=== PATIENT | female | born 1955 | race Caucasian/White ===

== ENCOUNTER → 2016-05-02 | Outpatient (REF) | payer OTHER ==
[2016-05-02 15:43] LABS: BILIRUBIN,URINE Negative (Negative); COLOR,URINE Yellow; GLUCOSE, URINE (UA) Negative (Negative); LEUKOCYTE ESTERASE ,URINE 1+ (Negative); PH,URINE 6.5 (5.0 - 8.0)
[2016-05-02 15:55] LABS: CLARITY,URINE Slightly Cloudy
[2016-05-02 15:57] LABS: BASOPHILS % (AUTO) 0 % (0-2); EOSINOPHILS # (AUTO) 0.1 10^3uL; EOSINOPHILS % (AUTO) 1 % (0-4); LYMPHOCYTES # (AUTO) 3.2 X10^3; MEAN CORPUSCULAR HGB CONC 32.8 g/dL (31.0-37.0); MEAN CORPUSCULAR VOLUME 92 FL (80-100); MEAN PLATELET VOLUME 12.2 FL (6.0-9.5); MONOCYTES # (AUTO) 0.8 X10^3; MONOCYTES % (AUTO) 9 % (3-11); NEUTROPHILS # (AUTO) 4.6 X10^3; NEUTROPHILS % (AUTO) 53 % (51-67); PLATELET COUNT 197 10^3uL (150-450); WHITE BLOOD COUNT 8.69 10^3uL (4.0-11.0)
[2016-05-02 16:06] LABS: RBC,URINE None Seen /HPF; URINE CENTRIFUGED VOLUME 10 mL
[2016-05-02 16:15] LABS: ALBUMIN 4.4 g/dL (3.4-5.0); ANION GAP 15.7 MEQ/L (3-15); TOTAL PROTEIN 7.6 g/dL (6.4-8.5)
== END ==
LOC: LAB 15:13
PROVIDERS: ATTEND Family Medicine
DX: I10 Essential (primary) hypertension (principal); E78.4 Other hyperlipidemia; M79.7 Fibromyalgia; Z85.3 Personal history of malignant neoplasm of breast; K21.9 Gastro-esophageal reflux disease without esophagitis
CPT/HCPCS: 80053; 80061; 81003; 81015; 84443; 85025; 87088

== ENCOUNTER → 2016-05-11 | Outpatient (CLI) | payer OTHER ==
--- NOTE | 2016-05-11 19:37 | Diagnostic Imaging Report ---
INDICATION: Prior left mastectomy. EXAMINATION: Diagnostic mammogram, right breast, 05/11/2016. COMPARISON: 03/11/2015, 06/25/14. The current study was also evaluated with a Computer Aided Detection (CAD) system. FINDINGS: There are a few scattered calcifications stable in appearance with no suspicious microcalcifications or dominant masses appreciated. IMPRESSION: 1. Stable appearance of the right breast. Yearly evaluation recommended. ACR BI-RADS Category 2: Benign findings. Result letter will be mailed to the patient. Note: At least 10% of breast cancer is not imaged by mammography. Dictated by: Dictated on workstation # [id number]
== END ==
LOC: RAD 10:59
PROVIDERS: ATTEND Family Medicine
DX: Z85.3 Personal history of malignant neoplasm of breast (principal); Z90.12 Acquired absence of left breast and nipple